=== PATIENT | female | born 1955 | race Caucasian/White ===

== ENCOUNTER 2022-02-25 10:00 | Outpatient (RCR) | payer OTHER, SELFPAY ==
[2022-01-15 10:26] VITALS: PULSE 81; O2SAT 94
== END 2022-04-08 10:48 | disposition home or self-care (01) ==
LOC: HO.PT 10:00
PROVIDERS: PCP Internal Medicine; Visit Provider Internal Medicine
DX: R53.1 Weakness (principal)
CPT/HCPCS: 97110; 97162; 97530